=== PATIENT | female | born 1955 | race Caucasian/White ===

== ENCOUNTER 2016-12-05 05:46 | Outpatient (CLI) | payer OTHER ==
[~2016-12-05] VITALS: Ht 162.6 cm; Wt 81.6 kg
[2016-12-05] MEDS ORDERED: HYDR-3820 PO (11:28)
[2016-12-05] MEDS ORDERED: METO-333 PO (11:28)
[2016-12-05] MEDS ORDERED: GABA-486 PO (11:28)
[2016-12-05] MEDS ORDERED: OMEP40CA36 PO (11:28)
[2016-12-05] MEDS ORDERED: DICY10CA12 PO (11:28)
[2016-12-05] MEDS ORDERED: GLIM4TAB PO (11:28)
[2016-12-05] MEDS ORDERED: METF500T4 PO (11:28)
[2016-12-05] MEDS ORDERED: LISI-552 PO (11:28)
[2016-12-05] MEDS ORDERED: DILT120C63 PO (11:28)
== END 2016-12-05 11:36 ==
LOC: PREOP 05:46
PROVIDERS: ATTEND Surgery
DX: Z01.818 Encounter for other preprocedural examination (principal); K52.9 Noninfective gastroenteritis and colitis, unspecified

== ENCOUNTER 2016-12-10 08:30 | Day surgery (SDC) | payer OTHER ==
[~2016-12-10] VITALS: Ht 162.6 cm; Wt 81.6 kg
--- NOTE | 2016-12-10 08:27 | History & Physicial ---
History of Present Illness History of Present Illness Reason for visit/HPI to undergo colonoscopy regarding chronic diarrhea Date of Admission Date Seen by Provider: Dec 10, 2016 Time Seen by Provider: 08:25 I consulted on this patient on 12/10/16 08:24 Attending Physician Lesly Clement MD Admitting Physician Leanna Golden Aprn Consult Allergies and Home Medications Allergies Coded Allergies: NSAIDS (Non-Steroidal Anti-Inflamma (Verified Allergy, Severe, ANAPHYLAXIS , 12/05/16) Home Medications Dicyclomine HCl 10 Mg Capsule, 10 MG PO TID, (Reported) Diltiazem HCl 120 Mg Cap.er.24h, 120 MG PO HS, (Reported) Gabapentin 100 Mg Capsule, 100 MG PO TID, (Reported) Glimepiride 4 Mg Tablet, 4 MG PO DAILY, (Reported) Hydrocodone/Acetaminophen 1 Each Tablet, 1 EACH PO Q4H PRN for PAIN-MODERATE, ( Reported) Lisinopril 20 Mg Tablet, 20 MG PO DAILY, (Reported) Metformin HCl 500 Mg Tablet, 1,000 MG PO BID, (Reported) Metoprolol Tartrate 25 Mg Tablet, 25 MG PO DAILY, (Reported) Omeprazole 40 Mg Capsule.dr, 40 MG PO DAILY, (Reported) Past Cvmeglq-Izcoaf-Ynkhsa Hx Patient Social History Former Smoker, Quit: Dec 05, 2006 Recent Hopitalizations: No Immunizations Up To Date Date of Pneumonia Vaccine: Apr 10, 2015 Date of Influenza Vaccine: Nov 13, 2015 Seasonal Allergies Seasonal Allergies: Yes (MILD) Surgeries Yes Adenoidectomy, Gallbladder, Hysterectomy, Tonsillectomy Respiratory No Currently Using CPAP: Yes Cardiovascular Yes Hypertension Neurological No Reproductive System Hx Reproductive Disorders: No Sexually Transmitted Disease: No HIV/AIDS: No VE[employer]OR History: Hysterectomy Gastrointestinal Yes Gastroesophageal Reflux, Diverticulosis, Chronic Diarrhea, Polyps Musculoskeletal Yes Osteoporosis, Arthritis, Chronic Back Pain Endocrine History of Endocrine Disorders: Yes HEENT History of HEENT Disorders: Yes Loss of Vision: Bilateral Hearing Impairment: Denies Cancer No Psychosocial History of Psychiatric Problem: Yes Behavioral Health Disorders: Anxiety Integumentary History of Skin or Integumenta: No Blood Transfusions Adverse Reaction to a Blood Tr: No Constitutional: no symptoms reported EENTM: no symptoms reported Respiratory: no symptoms reported Cardiovascular: no symptoms reported Gastrointestinal: see HPI Genitourinary: no symptoms reported Musculoskeletal: joint pain Skin: no symptoms reported Psychiatric/Neurological: Anxiety Physical Exam Vital Signs Capillary Refill : General Appearance: No Apparent Distress HEENT: Normal ENT Inspection Neck: Normal Inspection Respiratory: Lungs Clear Cardiovascular: Regular Rate, Rhythm Gastrointestinal: Non Tender, Soft Rectal: Deferred Back: Normal Inspection Extremity: Normal Inspection Neurologic/Psychiatric: Alert, Oriented x3 Skin: Warm/Dry Assessment/Plan Assessment and Plan lady with chronic diarrhea. Reviewed the details of colonoscopy including the differential diagnosis of polyps and diverticular disease. Problems: LESLY CLEMENT MD Dec 10, 2016 8:27 am
--- NOTE | 2016-12-10 08:27 | Conscious Sedation/ASA ---
Conscious Sedation Pre-Proced Time Reviewed: 08:27 ASA Class: 2 Airway Mallampati Classification: ([place] appropriate class) I. II. III, IV Lungs Heart ASA score ASA 1: a normal healthy patient ASA 2: a patient with a mild systemic disease (mid diabetes, controlled hypertension, obesity ASA 3: a patient with a severe systemic disease that limits activity (angina , COPD, prior Myocardial infarction) ASA 4: a patient with an incapacitating disease that is a constant threat to life (CHF, renal failure) ASA 5: a moribund patient not expected to survive 24 hrs. (ruptured aneurysm) ASA 6: a declared brain patient whose organs are being harvested. For emergent operations, add the letter E after the classification Grade 2 Sedation Plan: Discussed options with patient/fam Note The patient is an appropriate candidate to undergo the planned procedure, sedation, and anesthesia. The patient immediately re-assessed prior to indication. LESLY CLEMENT MD Dec 10, 2016 8:27 am
[~2016-12-10 08:30] MED LIST: DICY10CA12 PO; DILT120C63 PO; GABA-486 PO; GLIM4TAB PO; HYDR-3820 PO; LISI-552 PO; METF500T4 PO; METO-333 PO; OMEP40CA36 PO
[2016-12-10] MEDS ORDERED: NS IV 500 ML 500 ML IV ONE (08:45)
[2016-12-10] MEDS ORDERED: NS IV 500 ML 500 ML ONE (08:46)
[2016-12-10 09:05] VITALS: BP 128/86
[2016-12-10] MEDS ORDERED: fentaNYL INJECTION 100 MCG/2 ML AMP ONE ×2 (09:14→09:24)
[2016-12-10] MEDS ORDERED: MIDAZOLAM 2 MG/2 ML (VERSED) VIAL ONE ×3 (09:14)
[2016-12-10] MEDS: MIDAZOLAM 2 MG/2 ML (VERSED) VIAL IVP PRN ×3 (09:20→09:27)
[2016-12-10] MEDS: fentaNYL INJECTION 100 MCG/2 ML AMP IVP PRN ×2 (09:21→09:24)
--- NOTE | 2016-12-10 09:38 | Endo Procedure Record ---
Endo Procedure Report Date of Procedure Dec 10, 2016 Surgeon (s) LESLY CLEMENT MD Post Procedure/Op Diagnosis uncomplicated sigmoid diverticulosis Procedure Performed colonoscopy to cecum Description of Procedure Anesthesia Type: Conscious Sedation Specimen(s) collected/removed none Description of the Procedure indication for procedure: This lady has a personal history of polyps, based on a colonoscopy performed 11 years ago. In addition, she reports chronic diarrhea as well. It was therefore felt reasonable to perform colonoscopy. Informed consent was obtained after reviewing the procedure in detail. Description of procedure: She was placed in left lateral decubitus position and her vital signs were monitored. Conscious sedation was achieved using Versed and fentanyl. Digital rectal examination was unremarkable. The colonoscope was then introduced in the rectum and advanced all the way up to the cecum. The bowel preparation was reasonable. The scope was then withdrawn slowly and the mucosa examined in a systematic fashion. Findings: Uncomplicated sigmoid diverticulosis. No recurrent polyps were found. Biopsy toward the procedure well and was taken back to the nursing area in a stable condition. Impression: Previous history of polyps. No recurrence today. Chronic diarrhea. Uncomplicated diverticulosis. Note: A prescription for Questran has been given with instructions to follow up with her primary physician. Copies To: SAMANTHA PRABHAKAR MD, XAVIER M MD Dec 10, 2016 9:38 am
[2016-12-10] MEDS ORDERED: CHOL4PAC16 PO (09:39)
--- NOTE | 2016-12-10 09:40 | Discharge Inst-Simple/Standard ---
Discharge Inst-Standard Discharge Medications New, Converted or Re-Newed RX: RX on Chart Patient Instructions/Follow Up Plan of Care/Instructions/FU: follow-up with her primary Activity as Tolerated: Yes Discharge Diet: ADA Diet LESLY CLEMENT MD Dec 10, 2016 9:40 am
[2016-12-10 09:55] VITALS: BP 101/63
[2016-12-10 10:35] VITALS: BP 113/81
[2016-12-10 12:22] VITALS: BP 113/81
== END 2016-12-10 10:45 | disposition home or self-care (01) ==
LOC: ENDO 08:30
PROVIDERS: ATTEND Surgery
DX: K57.30 Diverticulosis of large intestine without perforation or abscess without bleeding (principal); Z86.010 Personal history of colon polyps; I10 Essential (primary) hypertension; Z87.891 Personal history of nicotine dependence; F41.9 Anxiety disorder, unspecified